=== PATIENT | female | born 1965 | race Caucasian/White ===

== ENCOUNTER 2016-06-24 06:25 | Outpatient (CLI) ==
--- NOTE | 2016-06-27 11:13 | STRESSECHO ---
Date of Test: 06/24/16 Ordering Physician: JOSE COLBY Reason for Exam: CHEST PAIN Current Medications: MEDS FOR INDIGESTION/STOMACH ISSUES Physical Findings: S1, S2, NO S3 Resting EKG: SINUS RHYTHM/NO ACUTE CHANGES Target Heart Rate: 141/167 STAGE MPH/GRADE HEART RATE BPM BLOOD PRESSURE mmhg RHYTHM S-T SEGMENT +/- UP DOWN SYMPTOMS,COMMENTS At Rest 63 112/60 SR X NONE 1 1.7/10% 105 122/80 SR X NONE 2 2.5/12% 115 118/82 SR X NONE 3 3.4/14% 4 4.2/16% 5 5.0/18% Immediately after 144 SR X FATIGUE Durations of Exercise: 9:36 Maximum Heart Rate Reached: 144 Reason for Termination: FATIGUE INTERPRETATION: 99% OXYGEN SATURATION WITH EXERCISE ON ROOM AIR METS 11.4 1. NO EVIDENCE OF ISCHEMIA BY ST-T WAVE 2. NO CHEST PAIN OR CHEST DISCOMFORT 3. BLOOD PRESSURE RESPONSE: HYPERTENSION AT REST AND WITH EXERCISE 4. NO ARRHYTHMIAS NORMAL LEFT VENTRICULAR CONTRACTILITY--RESTING AND WITH POST EXERCISE MTDD
--- NOTE | 2016-06-27 11:47 | ECHOSTRESS ---
Date of Exam: 06/24/16 Ordering Physician: JOSE COLBY Reason for Echo: CHEST PAIN, STRESS TEST--NO ISCHEMIA M-Mode Normal Adult Results LV Dimensions Normal Adult Results AoV Opening excursions >1.6 LVEDD-base- 3.5-5.8 Ao root dimensions 2.0-3.7 LVESD-base- 3.1-4.6 L. Atrium dimensions 1.9-3.8 Post. Wall thickness 0.8-1.1 IV septum (thickness) 0.7-1.2 Post. Wall excursion 0.72-1.3 Septal motion Systolic motion R. Ventricular cavity 1.5-2.0 LVEF 60% Paradoxical septal wall motion 2-D: NORMAL LEFT VENTRICULAR CONTRACTILITY--RESTING AND POST EXERCISE M-MODE: MV: AV: TV: PV: CHAMBER SIZE: WALL MOTION: NORMAL LEFT VENTRICULAR CONTRACTILITY--RESTING AND POST EXERCISE PERICARDIUM: INTERPRETATION: 1. NORMAL LEFT VENTRICULAR CONTRACTILITY--RESTING AND POST EXERCISE MTDD
--- NOTE | 2016-06-29 08:16 | STRESSECHO ---
Date of Test: [] Reason for Exam: [] Ordering Physician: [] Current Medications: [] Physical Findings: [] Resting EKG: [] Target Heart Rate: [] STAGE MPH/GRADE HEART RATE BPM BLOOD PRESSURE mmhg RHYTHM S-T SEGMENT +/- UP DOWN SYMPTOMS,COMMENTS At Rest [] [] [] [] [] 1 1.7/10% [] [] [] [] [] 2 2.5/12% [] [] [] [] [] 3 3.4/14% [] [] [] [] [] 4 4.2/16% [] [] [] [] [] 5 5.0/18% [] [] [] [] [] Immediately after [] [] [] [] [] Durations of Exercise: [] Maximum Heart Rate Reached: [] Reason for Termination: [] Minutes Post Exercise: [] HeartRate: [] Blood Pressure: [] Minutes Post Exercise: [] HeartRate: [] Blood Pressure: [] Minutes Post Exercise: [] HeartRate: [] Blood Pressure: [] INTERPRETATION: 1. [] 2. [] 3. [] 4. [] MTDD
== END 2016-06-24 06:26 | disposition home or self-care (01) ==
LOC: CAR 06:25
PROVIDERS: ATTEND Family Medicine
DX: R07.9 Chest pain, unspecified (principal)

== ENCOUNTER 2018-06-04 01:15 | Outpatient (CLI) | END 2018-06-05 01:35 | disposition short-term general hospital (02) | LOC: AMBL 01:15 | PROVIDERS: ATTEND Internal Medicine Geriatric Medicine | DX: R10.9 Unspecified abdominal pain (principal) ==